=== PATIENT | male | born 1960 | race Caucasian/White ===

== ENCOUNTER 2018-06-04 21:49 | Inpatient (IN) | payer OTHER ==
[2018-06-04 22:40] LABS: ADD MAN DIFF? NO
[2018-06-04 22:42] LABS: WHITE BLOOD COUNT 7.5 10^3/ul (4.8-10.8)
[2018-06-04 22:42] LABS: BASOPHILS % 0.5 % (0.0-2.0); EOSINOPHILS % 0.3 % (0.0-7.0); HEMATOCRIT 44.1 % (42.0-52.0); HEMOGLOBIN 15.5 g/dl (14.0-18.0); LYMPHOCYTES # 2.8 10^3/ul (0.8-2.9); LYMPHOCYTES % 36.9 % (15.0-51.0); MEAN CORPUSCULAR HEMOGLOBIN 32.2 pg (29.0-33.0); MEAN CORPUSCULAR HGB CONC 35.1 g/dl (32.0-37.0); MEAN CORPUSCULAR VOLUME 91.5 fl (82.0-101.0); MEAN PLATELET VOLUME 8.9 fl (7.4-10.4); MONOCYTE # 0.4 10^3/ul (0.3-0.9); MONOCYTES % 5.2 % (0.0-11.0); NEUTROPHIL # 4.2 10^3/ul (1.6-7.5); NEUTROPHILS % 56.8 % (39.0-77.0); PLATELET COUNT 255 10^3/UL (140-415); RED BLOOD COUNT 4.82 10^6/ul (4.70-6.10); RED CELL DISTRIBUTION WIDTH 12.4 % (11.5-14.5)
[2018-06-04] MEDS: ASPIRIN 325 MG TAB PO (22:51)
[2018-06-04] MEDS: NITROGLYCERIN 2% 1 GM OINT PKT TD (22:52)
[2018-06-04 22:58] LABS: ANION GAP 12 (5-13); BLOOD UREA NITROGEN 10 mg/dl (7-20); CALCIUM 9.1 mg/dl (8.4-10.2); CARBON DIOXIDE 27 mmol/L (21-31); CHLORIDE 104 mmol/L (97-110); CREATININE 0.86 mg/dl (0.61-1.24); Estimated GFR > 60 mL/min (>60); GLUCOSE 116 mg/dl (70-220); POTASSIUM 3.8 mmol/L (3.5-5.1); SODIUM 143 mmol/L (135-144)
[2018-06-04 23:10] LABS: TROPONIN-I < 0.012 ng/ml (0.000-0.120)
[2018-06-05] MEDS ORDERED: ACETAMINOPHEN 325 MG TAB PO
[2018-06-05] MEDS ORDERED: morphine 2 MG INJ IV (04:30)
[2018-06-05] MEDS ORDERED: NITROGLYCERIN (SL) 0.4 MG TAB SL (04:30)
[2018-06-05] MEDS ORDERED: ONDANSETRON 4 MG INJ IV ×2 (04:30)
[2018-06-05] MEDS: ACETAMINOPHEN 325 MG TAB PO (04:32)
[2018-06-05] MEDS ORDERED: PANTOPRAZOLE 40 MG INJ IV (06:00)
[2018-06-05 07:21] LABS: CREATINE KINASE 88 IU/L (23-200)
[2018-06-05 07:29] LABS: CK INDEX 0.5; CK-MB 0.43 ng/ml (0.0-2.4); TROPONIN-I < 0.012 ng/ml (0.000-0.120)
[2018-06-05] MEDS: FAMOTIDINE 20 MG INJ IV ×2 (09:03→20:55)
[2018-06-05] MEDS: ASPIRIN (EC) 81 MG TAB PO (09:04)
[2018-06-05 12:07] LABS: CREATINE KINASE 85 IU/L (23-200)
[2018-06-05 12:21] LABS: CK INDEX 0.4; CK-MB 0.37 ng/ml (0.0-2.4); TROPONIN-I < 0.012 ng/ml (0.000-0.120)
[2018-06-05] MEDS: ENOXAPARIN 40 MG/0.4 ML SYG SC (14:48)
[2018-06-05] MEDS: SUCRALFATE 1 GM TAB PO ×3 (15:25→20:55)
[2018-06-05] MEDS: ATORVASTATIN 80 MG TAB PO (20:56)
[2018-06-05] MEDS: EZETIMIBE 10 MG TAB PO (20:56)
[2018-06-05] MEDS: ISOSORBIDE DINITRATE 10 MG TAB PO (20:56)
[2018-06-06 07:02] LABS: ADD MAN DIFF? NO
[2018-06-06 07:05] LABS: WHITE BLOOD COUNT 7.2 10^3/ul (4.8-10.8)
[2018-06-06 07:05] LABS: BASOPHIL # 0.1 10^3/ul (0.0-0.1); BASOPHILS % 0.8 % (0.0-2.0); EOSINOPHILS # 0.1 10^3/ul (0.0-0.5); EOSINOPHILS % 1.4 % (0.0-7.0); HEMATOCRIT 42.6 % (42.0-52.0); HEMOGLOBIN 14.7 g/dl (14.0-18.0); LYMPHOCYTES # 1.7 10^3/ul (0.8-2.9); LYMPHOCYTES % 23.2 % (15.0-51.0); MEAN CORPUSCULAR HEMOGLOBIN 31.9 pg (29.0-33.0); MEAN CORPUSCULAR HGB CONC 34.5 g/dl (32.0-37.0); MEAN CORPUSCULAR VOLUME 92.4 fl (82.0-101.0); MEAN PLATELET VOLUME 9.7 fl (7.4-10.4); MONOCYTE # 0.4 10^3/ul (0.3-0.9); NEUTROPHILS % 69.3 % (39.0-77.0); PLATELET COUNT 185 10^3/UL (140-415); RED BLOOD COUNT 4.61 10^6/ul (4.70-6.10); RED CELL DISTRIBUTION WIDTH 12.6 % (11.5-14.5)
[2018-06-06 07:42] LABS: CREATINE KINASE 61 IU/L (23-200)
[2018-06-06 07:49] LABS: CK INDEX 0.4; CK-MB 0.24 ng/ml (0.0-2.4); TROPONIN-I < 0.012 ng/ml (0.000-0.120)
[2018-06-06 07:52] LABS: CHOLESTEROL 232 mg/dl (100-200)
[2018-06-06 07:52] LABS: CHOL/HDL RATIO 3.5 RATIO; HDL CHOLESTEROL 65 mg/dl (30-78); LDL CHOLESTEROL,CALCULATED 118 mg/dl; TRIGLYCERIDES 246 mg/dl (0-149)
[2018-06-06 07:57] LABS: ANION GAP 7 (5-13); BLOOD UREA NITROGEN 13 mg/dl (7-20); CALCIUM 9.6 mg/dl (8.4-10.2); CARBON DIOXIDE 27 mmol/L (21-31); CHLORIDE 105 mmol/L (97-110); CREATININE 0.91 mg/dl (0.61-1.24); Estimated GFR > 60 mL/min (>60); GLUCOSE 92 mg/dl (70-220); POTASSIUM 3.7 mmol/L (3.5-5.1); SODIUM 139 mmol/L (135-144)
[2018-06-06 08:17] LABS: HEMOGLOBIN A1C 5.4 % (0-5.9)
[2018-06-06] MEDS: FAMOTIDINE 20 MG INJ IV ×2 (08:31→21:44)
[2018-06-06] MEDS: SUCRALFATE 1 GM TAB PO ×4 (08:32→21:44)
[2018-06-06] MEDS: ASPIRIN (EC) 81 MG TAB PO (08:32)
[2018-06-06] MEDS: ISOSORBIDE DINITRATE 10 MG TAB PO ×3 (08:33→21:43)
[2018-06-06] MEDS: ENOXAPARIN 40 MG/0.4 ML SYG SC (08:34)
[2018-06-06] MEDS: REGADENOSON 0.4 MG/5 ML SYG (12:32)
[2018-06-06] MEDS: ATORVASTATIN 80 MG TAB PO (21:43)
[2018-06-06] MEDS: EZETIMIBE 10 MG TAB PO (21:44)
[2018-06-07 06:22] LABS: ADD MAN DIFF? NO
[2018-06-07 06:31] LABS: BASOPHILS % 0.5 % (0.0-2.0); EOSINOPHILS # 0.2 10^3/ul (0.0-0.5); EOSINOPHILS % 3.5 % (0.0-7.0); HEMATOCRIT 39.1 % (42.0-52.0); HEMOGLOBIN 13.7 g/dl (14.0-18.0); MEAN CORPUSCULAR HEMOGLOBIN 32.2 pg (29.0-33.0); MONOCYTE # 0.4 10^3/ul (0.3-0.9); MONOCYTES % 6.3 % (0.0-11.0); NEUTROPHIL # 3.4 10^3/ul (1.6-7.5); NEUTROPHILS % 56.4 % (39.0-77.0); PLATELET COUNT 152 10^3/UL (140-415); RED BLOOD COUNT 4.25 10^6/ul (4.70-6.10); RED CELL DISTRIBUTION WIDTH 12.5 % (11.5-14.5)
[2018-06-07 07:11] LABS: ANION GAP 10 (5-13); BLOOD UREA NITROGEN 18 mg/dl (7-20); CALCIUM 9.2 mg/dl (8.4-10.2); CARBON DIOXIDE 27 mmol/L (21-31); CHLORIDE 103 mmol/L (97-110); CREATININE 0.88 mg/dl (0.61-1.24); Estimated GFR > 60 mL/min (>60); GLUCOSE 106 mg/dl (70-220); POTASSIUM 3.2 mmol/L (3.5-5.1); SODIUM 140 mmol/L (135-144)
[2018-06-07] MEDS: FAMOTIDINE 20 MG INJ IV ×2 (08:32→20:17)
[2018-06-07] MEDS: SUCRALFATE 1 GM TAB PO ×4 (08:32→20:17)
[2018-06-07] MEDS: ASPIRIN (EC) 81 MG TAB PO (08:32)
[2018-06-07] MEDS: ISOSORBIDE DINITRATE 10 MG TAB PO ×3 (08:32→20:17)
[2018-06-07] MEDS: ENOXAPARIN 40 MG/0.4 ML SYG SC (08:33)
[2018-06-07] MEDS: POTASSIUM CHLORIDE (SR) 20 MEQ TAB PO (12:15)
[2018-06-07] MEDS ORDERED: FENTAnyl 50 MCG/ML VIAL (12:51)
[2018-06-07] MEDS ORDERED: LIDOCAINE 1% (MDV) 20 ML INJ (12:51)
[2018-06-07] MEDS ORDERED: HEPARIN 1000 UNITS/ML 10 ML INJ ×2 (12:51→12:53)
[2018-06-07] MEDS ORDERED: MIDAZOLAM 1 MG/ML 2 ML INJ (12:52)
[2018-06-07] MEDS ORDERED: VERAPAMIL 5 MG INJ (12:52)
[2018-06-07] MEDS ORDERED: NITROGLYCERIN (IC) 100 MCG/ML INJ (12:52)
[2018-06-07] MEDS ORDERED: IODIXANOL LOCM 100 ML BTL ×2 (13:50→14:18)
[2018-06-07] MEDS ORDERED: IOHEXOL 350MG/ML 50 ML BTL (13:50)
[2018-06-07] MEDS ORDERED: ZOLPIDEM 5 MG TAB PO (14:30)
[2018-06-07] MEDS ORDERED: AL HYDROX/MG HYDROX/SIMETH 30 ML CUP PO (14:30)
[2018-06-07] MEDS ORDERED: ACETAMINOPHEN 325 MG TAB PO (14:30)
[2018-06-07] MEDS ORDERED: OXYCODONE/ACETAMINOPHEN (5/325) TAB PO (14:30)
[2018-06-07] MEDS ORDERED: ONDANSETRON 4 MG INJ IV (14:30)
[2018-06-07] MEDS: SOD CHLORIDE 0.9% 1,000 ML IV (15:15)
[2018-06-07] MEDS: ATORVASTATIN 80 MG TAB PO (20:17)
[2018-06-07] MEDS: EZETIMIBE 10 MG TAB PO (20:17)
[2018-06-08] MEDS: ASPIRIN (EC) 81 MG TAB PO (08:20)
[2018-06-08] MEDS: ISOSORBIDE DINITRATE 10 MG TAB PO ×3 (08:20→22:24)
[2018-06-08] MEDS: SUCRALFATE 1 GM TAB PO ×4 (08:20→22:23)
[2018-06-08] MEDS: FAMOTIDINE 20 MG INJ IV (08:20)
[2018-06-08] MEDS: ENOXAPARIN 40 MG/0.4 ML SYG SC (08:25)
[2018-06-08 08:44] LABS: ADD MAN DIFF? NO
[2018-06-08 08:54] LABS: BASOPHILS % 0.6 % (0.0-2.0); EOSINOPHILS # 0.2 10^3/ul (0.0-0.5); EOSINOPHILS % 2.7 % (0.0-7.0); HEMATOCRIT 37.9 % (42.0-52.0); HEMOGLOBIN 13.2 g/dl (14.0-18.0); LYMPHOCYTES # 1.8 10^3/ul (0.8-2.9); LYMPHOCYTES % 27.5 % (15.0-51.0); MEAN CORPUSCULAR HEMOGLOBIN 32.4 pg (29.0-33.0); MEAN CORPUSCULAR HGB CONC 34.8 g/dl (32.0-37.0); MEAN CORPUSCULAR VOLUME 92.9 fl (82.0-101.0); MEAN PLATELET VOLUME 9.9 fl (7.4-10.4); MONOCYTE # 0.5 10^3/ul (0.3-0.9); MONOCYTES % 7.8 % (0.0-11.0); NEUTROPHIL # 4.1 10^3/ul (1.6-7.5); NEUTROPHILS % 61.1 % (39.0-77.0); PLATELET COUNT 134 10^3/UL (140-415); POSITIVE DIFF @See below; RED BLOOD COUNT 4.08 10^6/ul (4.70-6.10); RED CELL DISTRIBUTION WIDTH 12.7 % (11.5-14.5)
[2018-06-08 08:54] LABS: WHITE BLOOD COUNT 6.7 10^3/ul (4.8-10.8)
[2018-06-08 09:15] LABS: ANION GAP 7 (5-13); BLOOD UREA NITROGEN 12 mg/dl (7-20); CARBON DIOXIDE 25 mmol/L (21-31); CHLORIDE 108 mmol/L (97-110); CREATININE 0.76 mg/dl (0.61-1.24); Estimated GFR > 60 mL/min (>60); GLUCOSE 105 mg/dl (70-220); POTASSIUM 3.7 mmol/L (3.5-5.1); SODIUM 140 mmol/L (135-144)
[2018-06-08 09:20] LABS: INR 0.85; PROTIME 11.7 Sec (11.9-14.9); PT RATIO 0.9
[2018-06-08] MEDS: SOD CHLORIDE 0.9% 1,000 ML IV (14:06)
[2018-06-08] MEDS: ACETYLCYSTEINE 600 MG CAP PO (22:22)
[2018-06-08] MEDS: EZETIMIBE 10 MG TAB PO (22:22)
[2018-06-08] MEDS: ATORVASTATIN 80 MG TAB PO (22:23)
[2018-06-08] MEDS: FAMOTIDINE 20 MG TAB PO (22:23)
[2018-06-09 07:21] LABS: ANION GAP 9 (5-13); BLOOD UREA NITROGEN 11 mg/dl (7-20); CALCIUM 8.9 mg/dl (8.4-10.2); CARBON DIOXIDE 26 mmol/L (21-31); CHLORIDE 107 mmol/L (97-110); CREATININE 0.76 mg/dl (0.61-1.24); Estimated GFR > 60 mL/min (>60); GLUCOSE 101 mg/dl (70-220); POTASSIUM 3.6 mmol/L (3.5-5.1); SODIUM 142 mmol/L (135-144)
[2018-06-09] MEDS: ACETYLCYSTEINE 600 MG CAP PO ×2 (09:00→21:03)
[2018-06-09] MEDS: ENOXAPARIN 40 MG/0.4 ML SYG SC (09:00)
[2018-06-09] MEDS: SUCRALFATE 1 GM TAB PO ×4 (09:01→21:03)
[2018-06-09] MEDS: ISOSORBIDE DINITRATE 10 MG TAB PO ×3 (09:01→21:01)
[2018-06-09] MEDS: FAMOTIDINE 20 MG TAB PO ×2 (09:02→21:03)
[2018-06-09] MEDS: ASPIRIN (EC) 81 MG TAB PO (09:02)
[2018-06-09] MEDS: SOD CHLORIDE 0.9% 1,000 ML IV ×3 (10:39→23:59)
[2018-06-09] MEDS ORDERED: HEPARIN 1000 UNITS/ML 10 ML INJ (13:19)
[2018-06-09] MEDS ORDERED: MIDAZOLAM 1 MG/ML 2 ML INJ (13:20)
[2018-06-09] MEDS ORDERED: FENTAnyl 50 MCG/ML VIAL (13:20)
[2018-06-09] MEDS ORDERED: IODIXANOL LOCM 100 ML BTL (13:20)
[2018-06-09] MEDS ORDERED: NITROGLYCERIN (IC) 100 MCG/ML INJ (13:46)
[2018-06-09] MEDS ORDERED: SOD CHLORIDE 0.9% 500 ML (13:46)
[2018-06-09] MEDS ORDERED: BIVALIRUDIN 250MG /NS 50 ML 50 ML IVPB ×2 (13:46→14:25)
[2018-06-09] MEDS ORDERED: VERAPAMIL 4 MG, NITROGLYCERIN 4 MG, HEPARIN (10000 UNITS/ML) 20,000 UNIT, LIDOCAINE 2% ... IV (14:00)
[2018-06-09] MEDS ORDERED: ASPIRIN 325 MG TAB (15:11)
[2018-06-09] MEDS ORDERED: CLOPIDOGREL 300 MG TAB (15:12)
[2018-06-09] MEDS ORDERED: ONDANSETRON 4 MG INJ IV (15:30)
[2018-06-09] MEDS ORDERED: AL HYDROX/MG HYDROX/SIMETH 30 ML CUP PO (15:30)
[2018-06-09] MEDS ORDERED: ACETAMINOPHEN 325 MG TAB PO (15:30)
[2018-06-09] MEDS ORDERED: morphine 2 MG INJ IV (15:30)
[2018-06-09] MEDS ORDERED: OXYCODONE/ACETAMINOPHEN (5/325) TAB PO (15:30)
[2018-06-09] MEDS: EZETIMIBE 10 MG TAB PO (21:02)
[2018-06-09] MEDS: ATORVASTATIN 80 MG TAB PO (21:03)
[2018-06-10 08:24] LABS: ADD MAN DIFF? NO
[2018-06-10 08:33] LABS: BASOPHILS % 0.6 % (0.0-2.0); EOSINOPHILS # 0.1 10^3/ul (0.0-0.5); EOSINOPHILS % 1.7 % (0.0-7.0); HEMATOCRIT 35.4 % (42.0-52.0); HEMOGLOBIN 12.2 g/dl (14.0-18.0); LYMPHOCYTES # 1.8 10^3/ul (0.8-2.9); LYMPHOCYTES % 25.5 % (15.0-51.0); MEAN CORPUSCULAR HEMOGLOBIN 32.4 pg (29.0-33.0); MEAN CORPUSCULAR HGB CONC 34.5 g/dl (32.0-37.0); MEAN CORPUSCULAR VOLUME 93.9 fl (82.0-101.0); MEAN PLATELET VOLUME 10.5 fl (7.4-10.4); MONOCYTE # 0.8 10^3/ul (0.3-0.9); NEUTROPHIL # 4.4 10^3/ul (1.6-7.5); NEUTROPHILS % 60.8 % (39.0-77.0); PLATELET COUNT 131 10^3/UL (140-415); RED BLOOD COUNT 3.77 10^6/ul (4.70-6.10)
[2018-06-10 08:33] LABS: WHITE BLOOD COUNT 7.2 10^3/ul (4.8-10.8)
[2018-06-10] MEDS: SUCRALFATE 1 GM TAB PO (08:36)
[2018-06-10] MEDS: ACETYLCYSTEINE 600 MG CAP PO (08:36)
[2018-06-10] MEDS: FAMOTIDINE 20 MG TAB PO (08:37)
[2018-06-10] MEDS: ISOSORBIDE DINITRATE 10 MG TAB PO (08:37)
[2018-06-10] MEDS: ASPIRIN (EC) 81 MG TAB PO (08:37)
[2018-06-10] MEDS: ENOXAPARIN 40 MG/0.4 ML SYG SC (08:42)
[2018-06-10 08:56] LABS: ANION GAP 8 (5-13); BLOOD UREA NITROGEN 11 mg/dl (7-20); CARBON DIOXIDE 25 mmol/L (21-31); CHLORIDE 110 mmol/L (97-110); Estimated GFR > 60 mL/min (>60); GLUCOSE 91 mg/dl (70-220); POTASSIUM 3.6 mmol/L (3.5-5.1); SODIUM 143 mmol/L (135-144)
== END 2018-06-10 11:29 | disposition home or self-care (01) | DRG 247 ==
LOC: TEL 23:58 → E/R 21:49 → TEL 06-07 17:38
PROC: 027035Z Dilation of Coronary Artery, One Artery with Two Drug-eluting Intraluminal Devices, Percutaneous Approach (ICD-10-PCS; principal; 2018-06-07 12:40)
PROC: 4A023N7 Measurement of Cardiac Sampling and Pressure, Left Heart, Percutaneous Approach (ICD-10-PCS; 2018-06-07 12:40)
PROC: B211YZZ Fluoroscopy of Multiple Coronary Arteries using Other Contrast (ICD-10-PCS; 2018-06-07 12:40)
PROC: 4A023N7 Measurement of Cardiac Sampling and Pressure, Left Heart, Percutaneous Approach (ICD-10-PCS; 2018-06-07 12:40)
PROC: B211YZZ Fluoroscopy of Multiple Coronary Arteries using Other Contrast (ICD-10-PCS; 2018-06-07 12:40)
DX: I25.119 Atherosclerotic heart disease of native coronary artery with unspecified angina pectoris (principal); I25.82 Chronic total occlusion of coronary artery; I10 Essential (primary) hypertension; E78.5 Hyperlipidemia, unspecified; R94.31 Abnormal electrocardiogram [ECG] [EKG]; K29.70 Gastritis, unspecified, without bleeding; Z95.5 Presence of coronary angioplasty implant and graft
CPT/HCPCS: 36415; 71045; 78452; 80048; 80061; 82550; 82553; 83036; 84484; 85025; 85610; 93005; 93017; 93306; 93458; 99217; 99285-25; G0378